=== PATIENT | male | born 1955 | race Caucasian/White ===

== ENCOUNTER 2020-10-24 11:39 | Inpatient (IN) | payer MEDICARE ==
[~2020-10-24] VITALS: Ht 182.9 cm; Wt 127.9 kg
[2020-10-24 11:59] LABS: HEMOGLOBIN 15.4 gm/dl (14.0-17.5); RED BLOOD COUNT 5.46 M/UL (4.20-5.50); WHITE BLOOD COUNT 8.3 K/UL (4.5-11.0)
[2020-10-24 12:21] LABS: BUN/CREATININE RATIO 20 (0-10)
[2020-10-25 04:44] LABS: HEMOGLOBIN 14.9 gm/dl (14.0-17.5); RED BLOOD COUNT 5.37 M/UL (4.20-5.50); WHITE BLOOD COUNT 5.9 K/UL (4.5-11.0)
[2020-10-25 04:49] LABS: BUN/CREATININE RATIO 25 (0-10)
[2020-10-25] MEDS ORDERED: TESTOSTERO200 MG/1 M IM (09:40)
[2020-10-25] MEDS ORDERED: PLAQUENIL 200200 MG PO (09:42)
[2020-10-25] MEDS ORDERED: ISOSORBIDE MONO30 MG PO (09:51)
[2020-10-25] MEDS ORDERED: GABAPENTIN600 MG PO ×2 (09:51→14:21)
[2020-10-25] MEDS ORDERED: ALFUZOSIN HCL E10 MG PO (09:53)
[2020-10-25] MEDS ORDERED: VENLAFAXINE HCL75 MG PO (09:55)
[2020-10-25] MEDS ORDERED: PROTONIX 40 MG40 M1 PO (09:55)
[2020-10-25] MEDS ORDERED: ALBUTEROL2.5 MG/3 M INH (09:57)
[2020-10-25] MEDS ORDERED: LISINOPRIL20 MG PO (09:58)
[2020-10-25] MEDS ORDERED: ZINC50 MG PO (14:25)
[2020-10-25] MEDS ORDERED: ASPIRIN EC81 MG PO (14:25)
[2020-10-25] MEDS ORDERED: VITAMIN D3125 MCG PO (14:26)
[2020-10-25] MEDS ORDERED: TOPROL XL200 MG PO (14:31)
[2020-10-25] MEDS ORDERED: TRELEGY ELLIPT1 EAC1 INH (14:55)
--- NOTE | 2020-10-26 02:25 | NUR ---
NOTIFIED CREOSOTING ENGINEER THAT I NEEDED A TELEMETRY AND CONTINUOUS PULSE OX CORD FOR THE PT. CREOSOTING ENGINEER STATED THAT WE WERE CURRENTLY OUT OF PULSE OX CORDS, BUT HE WOULD PLACE ME ON THE WAITING LIST.
[2020-10-26 03:52] LABS: HEMOGLOBIN 15.1 gm/dl (14.0-17.5); RED BLOOD COUNT 5.47 M/UL (4.20-5.50)
[2020-10-26 03:53] LABS: WHITE BLOOD COUNT 9.2 K/UL (4.5-11.0)
[2020-10-26 04:30] LABS: BUN/CREATININE RATIO 31 (0-10)
[2020-10-27 09:01] LABS: HEMOGLOBIN 16.4 gm/dl (14.0-17.5); RED BLOOD COUNT 5.64 M/UL (4.20-5.50)
[2020-10-27 09:02] LABS: WHITE BLOOD COUNT 14.1 K/UL (4.5-11.0)
[2020-10-27 09:32] LABS: BUN/CREATININE RATIO 31 (0-10)
[2020-10-28 07:08] LABS: HEMOGLOBIN 15.5 gm/dl (14.0-17.5); RED BLOOD COUNT 5.59 M/UL (4.20-5.50); WHITE BLOOD COUNT 13.4 K/UL (4.5-11.0)
[2020-10-28 07:30] LABS: BUN/CREATININE RATIO 29 (0-10)
--- NOTE | 2020-10-28 17:39 | NUR ---
PT ROOM AIR O2 SAT IS 88%
[2020-10-29] MEDS ORDERED: MEDROL DOSEPAK 24 MG PO (08:51)
[2020-10-29] MEDS ORDERED: PROVENTIL HFA6.7 GM INH (08:53)
== END 2020-10-29 15:01 | disposition home or self-care (01) | DRG 177 ==
LOC: ER1 11:39 → CDU 21:01 → M/S 21:01
PROVIDERS: Internal Medicine; Physician Assistant; ADMIT Internal Medicine
PROC: 8E0ZXY6 Isolation (ICD-10-PCS; principal; 2020-10-24)
PROC: XW033E5 Introduction of Remdesivir Anti-infective into Peripheral Vein, Percutaneous Approach, New Technology Group 5 (ICD-10-PCS; 2020-10-24)
PROC: 3E0333Z Introduction of Anti-inflammatory into Peripheral Vein, Percutaneous Approach (ICD-10-PCS; 2020-10-24)
DX: U07.1 COVID-19 (principal); J12.82 Pneumonia due to coronavirus disease 2019; J96.01 Acute respiratory failure with hypoxia; J44.0 Chronic obstructive pulmonary disease with (acute) lower respiratory infection; N17.9 Acute kidney failure, unspecified; E87.1 Hypo-osmolality and hyponatremia; G89.29 Other chronic pain; K21.9 Gastro-esophageal reflux disease without esophagitis; G62.9 Polyneuropathy, unspecified; M06.9 Rheumatoid arthritis, unspecified; M35.00 Sjogren syndrome, unspecified; I25.10 Atherosclerotic heart disease of native coronary artery without angina pectoris; E66.01 Morbid (severe) obesity due to excess calories; I25.2 Old myocardial infarction; Z68.38 Body mass index [BMI] 38.0-38.9, adult; Z79.899 Other long term (current) drug therapy; Z79.82 Long term (current) use of aspirin; Z98.890 Other specified postprocedural states
CPT/HCPCS: 36415; 71045; 80048; 80053; 82550; 82553; 82728; 82803; 83874; 83880; 84484; 85025; 85027; 85379; 85652; 93005; 94640; 94664; 94760; 96374; 99285; G0378; J0456; J1100; J1650; J2185; J7030; Q9967

== ENCOUNTER → 2021-04-19 | Outpatient (CLI) | payer MEDICARE ==
[~2021-04-19] MED LIST: ALBUTEROL2.5 MG/3 M INH; ALFUZOSIN HCL E10 MG PO; ASPIRIN EC81 MG PO; GABAPENTIN600 MG PO; ISOSORBIDE MONO30 MG PO; LISINOPRIL20 MG PO; MEDROL DOSEPAK 24 MG PO; PLAQUENIL 200200 MG PO; PROTONIX 40 MG40 M1 PO; PROVENTIL HFA6.7 GM INH; TESTOSTERO200 MG/1 M IM; TOPROL XL200 MG PO; TRELEGY ELLIPT1 EAC1 INH; VENLAFAXINE HCL75 MG PO; VITAMIN D3125 MCG PO; ZINC50 MG PO
== END ==
LOC: EXRD 10:30
DX: E21.3 Hyperparathyroidism, unspecified (principal)
CPT/HCPCS: 77080